=== PATIENT | male | born 1950 | race Caucasian/White ===

== ENCOUNTER 2024-02-25 11:34 | Inpatient (IN) | payer MEDICAID, MEDICARE, OTHER ==
[2024-02-25] VITALS (25 sets, daily range): BP systolic 104–141; BP diastolic 40–83; PULSE 70–90; RESP 12–28; TEMP 98–98.9; O2SAT 94–100
[~2024-02-25] VITALS: Ht 177.8 cm; Wt 111.0 kg
[~2024-02-25 11:34] MED LIST: CARI-277 PO; GEMF600T OR; GLIP-204 PO; HYDR-4833 PO; LISI10TA34 PO; METF500T PO; ONGLYZA PO; PROP-312 PO
[2024-02-25] MEDS: SODIUM CHLORIDE 0.9% 1,000 ML IV ONE (11:50)
[2024-02-25 12:16] LABS: Basophils # (auto) 0 10 ^3/uL (0-0.2); Basophils % (auto) 0.4 % (0.0-2.0); Eosinophils # (auto) 0.2 10 ^3/uL (0-0.8); Eosinophils % (auto) 2.1 % (0.0-7.0); Hematocrit 27.2 % (41.0-53.0); Hemoglobin 8.8 g/dL (13.5-17.5); Lymphocytes # (auto) 0.8 10 ^3/uL (0.4-5.4); Lymphocytes % (auto) 8.2 % (10.0-50.0); Mean Corpuscular Hemoglobin 28.1 pg (28.0-32.0); Mean Corpuscular Hgb Conc. 32.4 g/dL (32.0-36.0); Mean Corpuscular Volume 86.7 fL (80.0-100.0); Monocytes # (auto) 0.5 10 ^3/uL (0-1.3); Monocytes % (auto) 5.8 % (0.0-12.0); Neutrophils # (auto) 7.8 10 ^3/uL (1.6-8.6); Neutrophils % (auto) 83.5 % (37.0-80.0); Nucleated Red Blood Cells % 0.1 %; Red Blood Cells 3.14 10^6/uL (4.5-5.90); Red Cell Distribution Width 16.6 % (11.8-14.3); White Blood Cell 9.4 10^3/uL (4.4-10.8)
[2024-02-25 12:28] LABS: Chloride 103 mmol/L (98-107); Potassium 4.5 mmol/L (3.5-5.1); Sodium 134 mmol/L (136-145)
[2024-02-25 12:29] LABS: Anion Gap 5 (5-15); Carbon Dioxide 26 mmol/L (20-30)
[2024-02-25 12:30] LABS: Calcium 9.1 mg/dL (8.7-10.4)
[2024-02-25 12:31] LABS: INR 1.25 (0.9-1.15); Partial Thromboplastin Time 26.2 SEC (24.5-34.5)
[2024-02-25 12:34] LABS: Glucose 168 mg/dL (74-106)
[2024-02-25 12:35] LABS: BUN/Creatinine Ratio 13.4 (10.0-20.0); Blood Urea Nitrogen 17 mg/dL (9-23)
[2024-02-25 12:41] LABS: Lactic Acid w/Reflex 2.7 mmol/L (0.4-2.0)
[2024-02-25] MEDS: NOREPINEPHRINE 8 MG/250ML KIT 250 ML IV SCH (12:55)
[2024-02-25] MEDS: VANCOMYCIN 1GM/200ML 200 ML IV ONE (13:15)
[2024-02-25] MEDS: cefTRIAXone 1GM/50ML D5W 50 ML IV ONE ×2 (13:15→15:30)
[2024-02-25] MEDS ORDERED: LORazepam 0.5 MG TAB PO PRN (15:30)
[2024-02-25] MEDS ORDERED: VANCOMYCIN PER PHARMACY 0 MG IV SCH (15:30)
[2024-02-25] MEDS ORDERED: ACETAMINOPHEN 325 MG TAB PO PRN (15:30)
[2024-02-25] MEDS ORDERED: ONDANSETRON HCL 4 MG/2 ML VIAL IV PRN (15:30)
[2024-02-25] MEDS ORDERED: NITROGLYCERIN 0.4 MG SL TAB SL PRN (15:30)
[2024-02-25] MEDS ORDERED: DOCUSATE SOD 100 MG CAP PO PRN (15:30)
[2024-02-25] MEDS: ASPirin 81 mg TAB PO ONE (15:30)
[2024-02-25 16:20] LABS: % Iron Saturation 11.4 % (20-55)
[2024-02-25 16:23] LABS: Ferritin 535.9 ng/mL (22-322); Folate (Folic Acid) 20.44 ng/mL (>5.38)
[2024-02-25] MEDS: IOHEXOL 350 MG/ML 100ML IJ ONE (16:27)
[2024-02-25 16:45] LABS: Lactic Acid w/Reflex 2.3 mmol/L (0.4-2.0)
[2024-02-25 17:01] LABS: Phosphorus 3.6 mg/dL (2.4-5.1)
[2024-02-25 17:09] LABS: CRP High Sensitivity 4.66 mg/dL (<1.0)
[2024-02-25 17:20] LABS: Magnesium 1.5 mg/dL (1.6-2.6)
[2024-02-25] MEDS: FUROSEMIDE 40 MG/4 ML VIAL IV ONE (17:27)
[2024-02-25] MEDS ORDERED: ATOR-47 PO (17:59)
[2024-02-25] MEDS: IPRATROPIUM BROM 0.5 MG/2.5ML INH SOL NEB SCH (19:11)
[2024-02-25 19:32] LABS: Urine Bacteria None Seen /hpf (None Seen); Urine WBC None Seen /hpf (0 - 3)
[2024-02-25 20:00] LABS: Urine Blood Negative /uL (Negative); Urine Clarity Clear (Clear); Urine Color Colorless (Yellow); Urine Protein, UAD Negative (Negative); Urine Specific Gravity 1.013 (1.001-1.035); Urine Urobilinogen Normal (Negative)
[2024-02-25 20:08] LABS: Amphetamine Screen, Urine Neg (NEGATIVE); Barbiturate Scree,Urine Neg (NEGATIVE); Benzodiazephine Screen, Urine Neg (NEGATIVE); Cocaine Screen, Urine Neg (NEGATIVE)
[2024-02-25 20:09] LABS: Opiate Scree,Urine Neg (NEGATIVE)
[2024-02-25 20:10] LABS: Cannabinoid Screen, Urine Neg (NEGATIVE); Phencyclidine Screen, Urine Neg (NEGATIVE)
[2024-02-25] MEDS: MORPHINE SULFATE INJ 2 MG/ml SYRG IV PRN ×2 (20:50→23:45)
[2024-02-25] MEDS: FUROSEMIDE 40 MG/4 ML VIAL IV SCH (21:07)
[2024-02-25 21:10] LABS: Basophils # (auto) 0.1 10 ^3/uL (0-0.2); Basophils % (auto) 0.6 % (0.0-2.0); Eosinophils # (auto) 0.3 10 ^3/uL (0-0.8); Eosinophils % (auto) 2.7 % (0.0-7.0); Hematocrit 30.8 % (41.0-53.0); Hemoglobin 9.8 g/dL (13.5-17.5); Lymphocytes # (auto) 1.5 10 ^3/uL (0.4-5.4); Lymphocytes % (auto) 15.2 % (10.0-50.0); Mean Corpuscular Hemoglobin 28.2 pg (28.0-32.0); Mean Corpuscular Hgb Conc. 31.8 g/dL (32.0-36.0); Mean Corpuscular Volume 88.6 fL (80.0-100.0); Monocytes # (auto) 0.7 10 ^3/uL (0-1.3); Monocytes % (auto) 6.9 % (0.0-12.0); Neutrophils # (auto) 7.2 10 ^3/uL (1.6-8.6); Neutrophils % (auto) 74.6 % (37.0-80.0); Nucleated Red Blood Cells % 0.1 %; Red Blood Cells 3.48 10^6/uL (4.5-5.90); Red Cell Distribution Width 17.2 % (11.8-14.3); White Blood Cell 9.7 10^3/uL (4.4-10.8)
[2024-02-25] MEDS: HEPARIN SODIUM (PORCINE) 5000 UNITS/ML 1ML VIAL IV ONE (21:15)
[2024-02-25] MEDS ORDERED: DEXTROSE (50%) 50ML SYRG IV PRN (21:15)
[2024-02-25] MEDS: ATORVASTATIN 20 MG TAB PO SCH (21:17)
[2024-02-25] MEDS: HEPARIN DRIP/D5W 100UNITS/ML 250 ML IV SCH (21:17)
[2024-02-25 21:27] LABS: INR 1.22 (0.9-1.15); Partial Thromboplastin Time 27.1 SEC (24.5-34.5); Prothrombin Time 12.7 sec (9.3-11.8)
[2024-02-25] MEDS: ACCU-CHEK COMFORT CURVE STRIP VI SCH (21:37)
[2024-02-25] MEDS: InsuLIN REG 1unit/0.01ml Soln (100units/ml) SC SCH (21:40)
[2024-02-25] MEDS: BUDESONIDE (INHALATION) 0.5 MG/2 ML NEB NEB SCH (21:40)
[2024-02-25] MEDS ORDERED: FUROSEMIDE 40 MG/4 ML VIAL IV SCH (22:00)
[2024-02-26] VITALS (19 sets, daily range): BP systolic 101–133; BP diastolic 59–85; PULSE 82–104; RESP 13–22; TEMP 98.1; O2SAT 95–100
[2024-02-26] MEDS: VANCOMYCIN 1GM/200ML 200 ML IV SCH (01:15)
[2024-02-26 02:39] LABS: COVID19 ANTIGEN SOFIA FIA NEGATIVE (NEGATIVE)
[2024-02-26] MEDS ORDERED: cefTRIAXone 1GM/50ML D5W 50 ML IV SCH (09:00)
[2024-02-26] MEDS ORDERED: ASPirin 81 mg TAB PO SCH (10:00)
== END 2024-02-26 04:31 | disposition short-term general hospital (02) | DRG 871 ==
LOC: ER 11:34 → EDBD 11:34 → TELE 15:20 → ICU CENTRL 18:28
PROVIDERS: ADMIT Internal Medicine; ATTEND Internal Medicine
DX: A41.9 Sepsis, unspecified organism (principal); I26.99 Other pulmonary embolism without acute cor pulmonale; J96.00 Acute respiratory failure, unspecified whether with hypoxia or hypercapnia; R65.21 Severe sepsis with septic shock; J98.51 Mediastinitis; I31.39 Other pericardial effusion (noninflammatory); Z20.822 Contact with and (suspected) exposure to COVID-19; I25.10 Atherosclerotic heart disease of native coronary artery without angina pectoris; J45.909 Unspecified asthma, uncomplicated; E78.5 Hyperlipidemia, unspecified; I11.0 Hypertensive heart disease with heart failure; I50.9 Heart failure, unspecified; I35.0 Nonrheumatic aortic (valve) stenosis; E11.9 Type 2 diabetes mellitus without complications; G90.9 Disorder of the autonomic nervous system, unspecified; Z90.49 Acquired absence of other specified parts of digestive tract; Z95.1 Presence of aortocoronary bypass graft; Z95.5 Presence of coronary angioplasty implant and graft; Z91.199 Patient's noncompliance with other medical treatment and regimen due to unspecified reason; Z79.899 Other long term (current) drug therapy
CPT/HCPCS: 36415; 71045; 71275; 80048; 80061; 80307; 81001; 82306; 82607; 82728; 82746; 82962; 83010; 83036; 83540; 83550; 83605; 83615; 83735; 83880; 84100; 84443; 84484; 85025; 85610; 85730; 86141; 86850; 86900; 86901; 87040; 87081; 87086; 87426; 93005; 96365; 96375; 99291; G0378